=== PATIENT | male | born 1955 | race Caucasian/White ===

== ENCOUNTER 2018-02-24 09:38 | Observation (INO) ==
[2018-02-24] MEDS ORDERED: Sodium Chlor 0.9% Inj 500 ML IV.CONT ONE (10:15)
[2018-02-24] MEDS ORDERED: Chlorhexidine Gluconate 2% 1 Pack (2 Cloths) TOPICAL ONE (10:15)
[2018-02-24] MEDS ORDERED: Metoprolol Tartrate 25 MG Tablet PO ONE (10:15)
[2018-02-24] MEDS ORDERED: Chlorhexidine 4% Topical 120 APPLIC/120 ML Bottle TOPICAL SCH (10:30)
[2018-02-24 10:32] VITALS: BP 130/69; PULSE 36; RESP 20; TEMP 98.8; O2SAT 97
[2018-02-24] MEDS ORDERED: ceFAZolin 2 GM Premix Inj 2 GM/50 ML PIGGYBACK IV.SIG SCH (11:00)
[2018-02-24] MEDS ORDERED: Acetaminophen 325 MG Tablet PO PRN (12:06)
[2018-02-24] MEDS ORDERED: Bisacodyl 10 MG Supp RECTAL PRN (12:06)
--- NOTE | 2018-02-24 12:38 | P.HPIM ---
History of Present Illness Primary Care Physician: Benito Haywood MD History of Present Illness: 63 year old male with hypogonadism and bradycardia admitted under observation after he was found to have high degree AV block on pre-op EKG this morning. The patient had come in for elective left arthroscopy today but the anesthesiologist noted his HR in the 30-40s with the aforementioned EKG finding. The patient is otherwise asymptomatic. He denies lightheadedness, dizziness, fatigue, syncopal events, chest pain, palpitations, exercise intolerance, or shortness of breath. He states he has for the most part had a low heart rate for his adult life and had an EKG in the past prior to a colonoscopy that he was told was fine. He has not had any formal cardiac work- up. 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 He takes testosterone injections every three weeks for hypogonadism. He states back in 2017 he had a sudden case of [place] Palsy; stroke was ruled out and there was concern for Lyme disease given that he moved from [place] just two years ago but he states he was told the work-up was negative. He saw Dr. Raza who attributed it to stress. His PCP is Dr. Blount. Prior he had a PCP in [place] whom he saw regularly. PMH: hypogonadism, bradycardia Surgical Hx: right elbow tendon repair, left quad tendon repair Family Hx: mother passed in her 80s from CHF, father had CAD with quadruple bypass and eventually passed from metastatic lung cancer Social Hx: lives with , recently moved from [place] about 2 years ago, occasional EtOH use on the weekends, denies tobacco or recreational drugs - Diagnosis (1) AV block Review of Systems All other systems reviewed negative except as stated in HPI PMFSH - History History Provided By: Patient - Medical History Medical History: Medical History (Last Reviewed 02/24/18 @ 10:14 by Rosa Isela Asif RN) Left shoulder pain - Surgical History Surgical History: Surgical History (Last Reviewed 02/24/18 @ 10:14 by Rosa Isela Asif RN) History of left knee surgery Hx of elbow surgery - Family History Family History: Family History (Last Updated 02/24/18 @ 13:04 by Jessica Louis MD) Mother CHF (congestive heart failure) Father Lung cancer - Social History I have reviewed the patient's Social History: Yes - Tobacco History Second Hand Smoke Exposure: No Tobacco Use In Past 30 Days: No Smoking Status: Former smoker - Alcohol History How Often Do You Have a Drink Containing Alcohol: 2 to 4 times a month - Substance Use History Substance History: No History of Abuse - Travel History Recent Travel in the [place] Within the Last 8 Weeks: Yes Recent Travel Out of the Country Within the Last 8 Weeks: No Medications and Allergies Active Medications: Active Medications Acetaminophen (Tylenol) 650 mg PO Q4H PRN PRN Reason: Temp > 100.4 Al Hydroxide/Mg Hydroxide (Milk Of Magnesia Liq) 30 ml PO Q12H PRN PRN Reason: Mild Constipation Bisacodyl (Dulcolax Supp) 10 mg RECTAL DAILY PRN PRN Reason: SEVERE CONSITIPATION Chlorhexidine Gluconate (Hibiclens 4% Topical) 1 applicatio TOPICAL ONCE [facility] Stop: 02/28/18 10:29 Last Admin: 02/24/18 10:15 Dose: 1 applicatio Lactated Ringer's (Lr 1000 Ml Inj) 1,000 mls @ 30 mls/hr IV.CONT .Q24H ONE Stop: 02/25/18 10:14 Last Admin: 02/24/18 10:25 Dose: 30 mls/hr Sodium Chloride (Ns Inj) 500 mls @ 30 mls/hr IV.CONT .[id number] ONE Stop: 02/25/18 02:54 Last Admin: 02/24/18 10:43 Dose: Not Given Cefazolin Sodium/Dextrose (Ancef 2 Gm Premix Inj) 2 gm in 50 mls @ 100 mls/hr IV.SIG RIPPER OPERATOR [facility] Stop: 02/28/18 10:59 Lactulose (Lactulose Liq) 30 ml PO DAILY PRN PRN Reason: SEVERE CONSITIPATION Ondansetron HCl (Zofran Inj) 4 mg IV.PUSH Q6H PRN PRN Reason: NAUSEA OR VOMITING Povidone Iodine (Betadine 7.5% Scrub) 1 applicatio TOPICAL ONCE [facility] Stop: 02/28/18 10:59 Sennosides (Senokot) 17.2 mg PO Q12H PRN PRN Reason: Moderate Constipation Allergies Allergy/AdvReac Type Severity Reaction Status Date / Time No Known Allergies Allergy Verified 02/24/18 09:59 Home Medications Medication Instructions Recorded Confirmed Type testosterone cypionate 200 mg IM Q3W 02/24/18 02/24/18 History Exam Vital signs: Vital Signs 02/24/18 10:16 Temperature 98.8 F Pulse Rate 36 L Respiratory Rate 20 Blood Pressure 130/69 Pulse Oximetry 97 Intake & Output 02/23/18 02/24/18 02/24/18 18:59 06:59 18:59 Weight 100.3 kg Other: Weight On Admission 100.3 kg Narrative: GENERAL: WN, WD male resting in bed in NAD. SKIN: Warm and dry. Several tattoos. HEENT: AT/NC. Pupils equal and round. MMM. NECK: Supple no tender LAD or JVD. No carotid bruits. HEART: Bradycardic with HR in the 40s. No appreciable murmurs. LUNGS: CTAB without wheezes or crackles. ABDOMEN: +BS, soft, NT, ND. EXTREMITIES: No LE edema. 2+ pedal pulses. NEURO: Awake and alert. PSYCH: Appropriate mood and affect. Caprini VTE Risk Assessment Caprini VTE Risk Assessment: Moderate/High Risk (score >= 2) Caprini Risk Assessment Model: Point Value = 1 Point Value = 2 Point Value = 3 Point Value = 5 Age 41-60 Minor surgery BMI > 25 kg/m2 Swollen legs Varicose veins or History of unexplained or recurrent spontaneous Oral contraceptives or hormone replacement Sepsis (< 1 month) Serious lung disease, including pneumonia (< 1 month) Abnormal pulmonary function Acute myocardial infarction Congestive heart failure (< 1 month) History of inflammatory bowel disease Medical patient at bed rest Age 61-74 Arthroscopic surgery Major open surgery (> 45 min) Laparoscopic surgery (> 45 min) Malignancy Confined to bed (> 72 hours) Immobilizing plaster cast Central venous access Age >= 75 History of VTE Family history of VTE Factor V Leiden Prothrombin [id number] Lupus anticoagulant Anticardiolipin antibodies Elevated serum homocysteine Heparin-induced thrombocytopenia Other congenital or acquired thrombophilia Stroke (< 1 month) Elective arthroplasty Hip, pelvis, or leg fracture Acute spinal cord injury (< 1 month) Prophylaxis Regimen: Total Risk Factor Score Risk Level Prophylaxis Regimen 0-1 Low Early ambulation 2 Moderate Order ONE of the following: *Sequential Compression Device (SCD) *Heparin 5000 units SQ BID 3-4 Higher Order ONE of the following medications: *Heparin 5000 units SQ TID *Enoxaparin/Lovenox 40 mg SQ daily (WT < 150 kg, CrCl > 30 mL/min) *Enoxaparin/Lovenox 30 mg SQ daily (WT < 150 kg, CrCl > 10-29 mL/min) *Enoxaparin/Lovenox 30 mg SQ BID (WT < 150 kg, CrCl > 30 mL/min) AND/OR *Sequential Compression Device (SCD) 5 or more Highest Order ONE of the following medications: *Heparin 5000 units SQ TID (Preferred with Epidurals) *Enoxaparin/Lovenox 40 mg SQ daily (WT < 150 kg, CrCl > 30 mL/min) *Enoxaparin/Lovenox 30 mg SQ daily (WT < 150 kg, CrCl > 10-29 mL/min) *Enoxaparin/Lovenox 30 mg SQ BID (WT < 150 kg, CrCl > 30 mL/min) AND *Sequential Compression Device (SCD) Assessment and Plan - Assessment (1) AV block Code(s): I44.30 - Unspecified atrioventricular block Status: Acute - Plan 63 year old male with hypogonadism and bradycardia admitted under observation after the patient was found to have high grade AV block on EKG with HR in the 30-40s though asymptomatic. 1. Bradycardia - First EKG showed either high-grade second degree AV block or third degree block, Q-waves in V1 and V2 - Second EKG showed sinus bradycardia with first degree AV block, Q waves in V1 and V2 - Pt reports a longstanding history of bradycardia but has never seen a telegraph lineman - Not on any medications that would contribute - Patient hemodynamically stable and asymptomatic - Check BMP and TSH - Check serial enzymes - Check 2D echo - Consult cardiology 2. L shoulder arthritis - Lortab PRN 3. Hypogonadism - Receives testosterone injections as an outpatient DVT prophylaxis: ambulating Code Status: FULL Discussed Condition With: Patient and his Discharge Planning: Pending cardiac evaluation H&P: Quality - VTE Deep Vein Thrombosis/Pulmonary Embolism Present on Admission: No
--- NOTE | 2018-02-24 15:57 | ECHRPT ---
Indication: CARDIOMYOPATHY CONCLUSIONS Normal left ventricular size. There is mild left ventricular hypertrophy. The left ventricular systolic function is normal with an estimated ejection fraction in the range of 60-65%. The left atrial size is mildly dilated. [id number] mitral valve regurgitation. The estimated pulmonary arterial pressure is 36 mmHg. There is trace tricuspid valve regurgitation. BP: / HR: Rhythm: MEASUREMENTS (Male / Female) Normal Values Technical Quality: 2D ECHO LV Diastolic Diameter PLAX 5.6 cm 4.2 - 5.9 / 3.9 - 5.3 cm LV Systolic Diameter PLAX 3.5 cm IVS Diastolic Thickness 1.3 cm 0.6 - 1.0 / 0.6 - 0.9 cm LVPW Diastolic Thickness 1.2 cm 0.6 - 1.0 / 0.6 - 0.9 cm LV Relative Wall Thickness 0.4 RV Internal Dim ED PLAX 2.9 cm LVOT Diameter 1.7 cm Aortic Root Diameter 3.2 cm LA Systolic Diameter LX 3.0 cm 3.0 - 4.0 / 2.7 - 3.8 cm LV Ejection Fraction MOD BP 59.9 % >= 55 % LV Ejection Fraction MOD 4C 55.1 % LV Ejection Fraction 4C AL 59.7 % LV Ejection Fraction MOD 2C 66.2 % LV Ejection Fraction 2C AL 67.4 % M-MODE Aortic Root Diameter MM 3.0 cm LA Systolic Diameter MM 4.3 cm LA Ao Ratio MM 1.4 AV Cusp Separation MM 2.2 cm DOPPLER AV Peak Velocity 168.0 cm/s AV Peak Gradient 11.3 mmHg LVOT Peak Velocity 153.0 cm/s LVOT Peak Gradient 9.4 mmHg AV Area Cont Eq pk 2.1 cm Mitral E Point Velocity 60.7 cm/s Mitral A Point Velocity 70.6 cm/s Mitral E to A Ratio 0.9 LV E' Lateral Velocity 16.1 cm/s Mitral E to LV E' Lateral Ratio 3.8 LV E' Septal Velocity 12.7 cm/s Mitral E to LV E' Septal Ratio 4.8 TR Peak Velocity 257.0 cm/s TR Peak Gradient 26.4 mmHg Right Atrial Pressure 10.0 mmHg Pulmonary Artery Systolic Pressu 36.4 mmHg Right Ventricular Systolic Press 36.4 mmHg PV Peak Velocity 175.0 cm/s PV Peak Gradient 12.3 mmHg FINDINGS LEFT VENTRICLE Normal left ventricular size. There is mild left ventricular hypertrophy. The left ventricular systolic function is normal with an estimated ejection fraction in the range of 60-65%. RIGHT VENTRICLE Normal right ventricular size and systolic function. LEFT ATRIUM The left atrial size is mildly dilated. RIGHT ATRIUM The right atrial size is normal. ATRIAL SEPTUM Normal atrial septal thickness without atrial level shunting by limited color doppler interrogation. AORTA The aortic root and proximal ascending aorta are normal in size on limited imaging. MITRAL VALVE [id number]-vv-[id number] mitral valve regurgitation. AORTIC VALVE Trileaflet aortic valve. No aortic valve stenosis or regurgitation. TRICUSPID VALVE The estimated pulmonary arterial pressure is 36 mmHg. There is trace tricuspid valve regurgitation. PULMONARY VALVE No pulmonary valve regurgitation or stenosis. VESSELS The inferior vena cava is normal in size. PERICARDIUM No pericardial effusion. Ej Hardin MD, FACC (Electronically Signed) Final Date:24 February 2018 15:56
--- NOTE | 2018-02-24 17:01 | ECG ---
Date Performed: 02/24/2018 Time Performed: 11:04:34 PTAGE: 63 years EKG: Sinus rhythm WITH 2:1 AV BLOCK POSSIBLE RIGHT VENTRICULAR CONDUCTION DELAY SEPTAL MYOCARDIAL INFARCTION , PROBABL Y OLD ABNORMAL ECG Compared to PREVIOUS TRACING , 2:1 AVB present DOCTOR: Ej Hardin Interpretating Date/Time 02/24/2018 16:59:35
--- NOTE | 2018-02-24 17:05 | ECG ---
Date Performed: 02/24/2018 Time Performed: 10:12:02 PTAGE: 63 years EKG: COMPLETE HEART BLOCK WITH JUNCTIONAL ESCAPE RHYTHM INCOMPLETE RIGHT BUNDLE BRANCH BLOCK SEP HIEU MYOCARDIAL INFARCTION , PROBABLY OLD INFERIOR MYOCARDIAL INFARCTION , PROBABLY OLD ABNORMAL ECG NO PREVIOUS TRACING DOCTOR: Ej Hardin Interpretating Date/Time 02/24/2018 17:04:44
--- NOTE | 2018-03-02 13:43 | MB ---
cc: Marnie Burciaga MD,Marnie Delgado MD, MD DATE: 02/24/2018 HISTORY OF PRESENT ILLNESS: Mr. Gamez is a 63-year-old gentleman, very active, on basically no medication, was admitted this morning for shoulder surgery. During hospitalization, he was found to have an episode of 2:1 AV block and severe bradycardia. I was consulted for evaluation and management. The chart was reviewed. The patient was evaluated. ALLERGIES: NONE REPORTED. SOCIAL HISTORY: The patient denies smoking and drinking. FAMILY HISTORY: Noncontributory to his current medical condition. MEDICATION: This gentleman is only on painkiller at home. REVIEW OF SYSTEMS: He has had no chest pain or discomfort. No shortness of breath. Very active. No fever. PHYSICAL EXAMINATION: GENERAL: Alert, fully oriented. VITAL SIGNS: Blood pressure 130/69, pulse 36, respiratory rate 18. LUNGS: Ventilated. CARDIOVASCULAR: S1, S2, regular, bradycardic. ABDOMEN: Soft. No mass. EXTREMITIES: No edema. LABORATORY DATA: A 12-lead electrocardiogram shows sinus rhythm episode of 2:1 AV block. ASSESSMENT AND RECOMMENDATIONS: Mr. Gamez is very active. He is lifting weights, and is working lifting boxes in a warehouse. He never experienced chest pain or shortness of breath. His is 65%. The QRS is narrow. Apparently, this is a high vagal tone. This gentleman, when moving around, conduction improved. At this point, my recommendation is discharge the patient home. No need for pacing support at this point. I will do a stress test on this gentleman to evaluate for AV conduction as an outpatient. Case extensively discussed with him and his . He is a very healthy gentleman. Advised if any dizziness, shortness of breath or near syncope, to go to the nearest emergency room. Marnie Burciaga MD HS/lc/do , 10:38 AM , 10:46 AM
== END 2018-02-24 15:34 | disposition home or self-care (01) ==
LOC: HSDI 09:38 → HSDC 09:38
PROVIDERS: ADMIT Orthopaedic Surgery Sports Medicine; ATTEND Orthopaedic Surgery Sports Medicine